=== PATIENT | female | born 1955 | race Caucasian/White ===

== ENCOUNTER 2017-07-20 12:30 | Outpatient (CLI) | payer OTHER | END 2017-07-20 12:31 | disposition home or self-care (01) | LOC: BICMAMMO 12:30 | PROVIDERS: ATTEND Obstetrics & Gynecology | DX: Z12.31 Encounter for screening mammogram for malignant neoplasm of breast (principal) | CPT/HCPCS: 77063 ==

== ENCOUNTER 2018-07-21 09:04 | Outpatient (CLI) | payer OTHER ==
--- NOTE | 2018-07-21 11:34 | MMO ---
BILATERAL MAMMOGRAMS: History: Screening mammography Comparison: Multiple exams back to 07-10-15. FINDINGS: Scattered fibroglandular densities and benign appearing calcifications. No dominant mass or suspiciou s calcifications. This study is interpreted with the assistance of computer aided detection. FINDINGS: BIRADS category 1 - negative. Suggest routine follow up. POS: [facility]
== END 2018-07-21 09:05 | disposition home or self-care (01) ==
LOC: SCSMAMMO 09:04
PROVIDERS: ATTEND Obstetrics & Gynecology
DX: Z12.31 Encounter for screening mammogram for malignant neoplasm of breast (principal)
CPT/HCPCS: 77067